=== PATIENT | female | born 1935 | race Caucasian/White ===

== ENCOUNTER 2017-01-16 20:53 | Inpatient (IN) | payer MEDICARE, OTHER ==
[~2017-01-16] VITALS: Ht 149.9 cm; Wt 49.0 kg
[2017-01-16] MEDS ORDERED: SODIUM CHLORIDE 0.9% 1,000ML IVBOLUS ONE (21:30)
[2017-01-16] MEDS ORDERED: ALBUTEROL/IPRATROPIUM 2.5MG/0.5MG, 3 ML NEB ONE (21:30)
[2017-01-16] MEDS ORDERED: SODIUM CHLORIDE FLUSH 10ML SYR IVF ONE (21:30)
[2017-01-16] MEDS ORDERED: ALBUTEROL/IPRATROPIUM 2.5MG/0.5MG, 3 ML ONE (21:52)
[2017-01-16 22:01] LABS: HEMATOCRIT 30.9 % (34.6-47.8); HEMOGLOBIN 9.9 g/dL (11.7-16.4); WHITE BLOOD COUNT 11.2 x10^3/uL (3.4-10)
[2017-01-16 22:09] LABS: ASPARTATE AMINO TRANSFERASE 53 U/L (15-37); BLOOD UREA NITROGEN 11 mg/dL (7-18)
[2017-01-16] MEDS ORDERED: ACETAMINOPHEN 325 MG TABLET ONE (22:14)
[2017-01-16 22:15] LABS: IS PT STATUS REG ER OR PRE ER? YES
[2017-01-16] MEDS ORDERED: LEVO50TA PO (22:19)
[2017-01-16] MEDS ORDERED: POTASSIUM CHLORIDE 20 MEQ TAB.ER.PRT PO ONE ×2 (22:30→23:30)
[2017-01-16] MEDS ORDERED: LEVOFLOXACIN/PMX 750MG/150ML 150 ML IV ONE (22:30)
[2017-01-16] MEDS ORDERED: ACETAMINOPHEN 325 MG TABLET PO ONE (22:30)
[2017-01-16] MEDS ORDERED: LEVOFLOXACIN/PMX 750MG/150ML 150 ML ONE (22:40)
[2017-01-16] MEDS ORDERED: POTASSIUM CHLORIDE 20 MEQ TAB.ER.PRT ONE (22:40)
[2017-01-16] MEDS ORDERED: SODIUM CHLORIDE 0.9% 1,000 ML IV SCH (23:04)
[2017-01-16] MEDS ORDERED: BISACODYL 10 MG SUPP PR PRN (23:30)
[2017-01-16] MEDS ORDERED: ONDANSETRON 2MG/ML, 2ML IVPush PRN (23:30)
[2017-01-16] MEDS ORDERED: POLYETHYLENE GLYCOL 17 GM PACKET PO PRN (23:30)
[2017-01-16 23:36] LABS: FERRITIN 59.4 ng/mL (8-252)
[2017-01-16] MEDS: LEVOFLOXACIN/PMX 750MG/150ML 150 ML IV SCH (23:37)
[2017-01-17 00:04] VITALS: BP 122/66
[2017-01-17] MEDS: HEPARIN 5,000 UNITS/ML, 1ML SQ SCH ×4 (00:48→23:24)
[2017-01-17 02:11] VITALS: BP 111/63
[2017-01-17] MEDS ORDERED: ALBUTEROL SULFATE 2.5 MG/3 ML NPPB PRN (02:30)
[2017-01-17 05:45] LABS: ASPARTATE AMINO TRANSFERASE 30 U/L (15-37); BLOOD UREA NITROGEN 7 mg/dL (7-18)
[2017-01-17] MEDS: LEVOTHYROXINE 50 MCG TABLET PO SCH (05:51)
[2017-01-17 06:04] LABS: HEMOGLOBIN 7.7 g/dL (11.7-16.4); WHITE BLOOD COUNT 9.1 x10^3/uL (3.4-10)
[2017-01-17 06:45] VITALS: BP 148/78
[2017-01-17] MEDS ORDERED: MAGNESIUM SULFATE PMX 2GM/50ML 50 ML IV ONE (08:30)
[2017-01-17] MEDS: POTASSIUM CHLORIDE 20 MEQ TAB.ER.PRT PO SCH ×2 (08:46→17:06)
[2017-01-17] MEDS ORDERED: SENNA/DOCUSATE TABLET PO SCH (09:00)
[2017-01-17] MEDS ORDERED: SENNA/DOCUSATE TABLET PO PRN (12:30)
[2017-01-17 13:05] VITALS: BP 155/79
[2017-01-17] MEDS: GUAIFENESIN ER 600 MG TABLET PO SCH ×2 (14:55→21:27)
[2017-01-17 16:59] VITALS: BP 135/72
[2017-01-17 18:39] LABS: HEMATOCRIT 25.9 % (34.6-47.8); HEMOGLOBIN 8.3 g/dL (11.7-16.4)
[2017-01-17] MEDS: FERROUS SULFATE 325 MG TABLET PO SCH (21:27)
[2017-01-17 22:30] VITALS: BP 148/75
[2017-01-17] MEDS: POTASSIUM CHLORIDE 20 MEQ in SODIUM CHLORIDE 0.9% 1,000 ML IV SCH (23:23)
[2017-01-17] MEDS: LEVOFLOXACIN/PMX 750MG/150ML 150 ML IV SCH (23:24)
[2017-01-18 01:47] VITALS: BP 126/69
[2017-01-18 05:28] LABS: HEMATOCRIT 25.3 % (34.6-47.8); HEMOGLOBIN 8.2 g/dL (11.7-16.4); WHITE BLOOD COUNT 8.9 x10^3/uL (3.4-10)
[2017-01-18 05:43] LABS: BLOOD UREA NITROGEN 5 mg/dL (7-18)
[2017-01-18 05:47] LABS: ASPARTATE AMINO TRANSFERASE 30 U/L (15-37)
[2017-01-18] MEDS: LEVOTHYROXINE 50 MCG TABLET PO SCH (05:53)
[2017-01-18 07:43] VITALS: BP 135/72
[2017-01-18] MEDS: GUAIFENESIN ER 600 MG TABLET PO SCH ×2 (08:22→21:12)
[2017-01-18] MEDS: HEPARIN 5,000 UNITS/ML, 1ML SQ SCH ×3 (08:23→23:21)
[2017-01-18] MEDS: POTASSIUM CHLORIDE 20 MEQ TAB.ER.PRT PO SCH (08:23)
[2017-01-18] MEDS: FERROUS SULFATE 325 MG TABLET PO SCH ×2 (08:23→16:35)
[2017-01-18] MEDS: ACETAMINOPHEN 325 MG TABLET PO PRN ×2 (08:36→18:17)
[2017-01-18] MEDS: POTASSIUM CHLORIDE 20 MEQ in SODIUM CHLORIDE 0.9% 1,000 ML IV SCH (12:30)
[2017-01-18 13:21] VITALS: BP 120/65
[2017-01-18 19:48] VITALS: BP 120/70
[2017-01-18] MEDS: LEVOFLOXACIN/PMX 750MG/150ML 150 ML IV SCH (23:21)
[2017-01-19 01:32] VITALS: BP 118/73
[2017-01-19] MEDS: HEPARIN 5,000 UNITS/ML, 1ML SQ SCH ×2 (05:39→16:49)
[2017-01-19] MEDS: POTASSIUM CHLORIDE 20 MEQ in SODIUM CHLORIDE 0.9% 1,000 ML IV SCH (05:39)
[2017-01-19] MEDS: LEVOTHYROXINE 50 MCG TABLET PO SCH (05:39)
[2017-01-19 06:27] LABS: BLOOD UREA NITROGEN 4 mg/dL (7-18)
[2017-01-19 08:31] VITALS: BP 126/68
[2017-01-19] MEDS: GUAIFENESIN ER 600 MG TABLET PO SCH ×2 (08:43→20:56)
[2017-01-19] MEDS: FERROUS SULFATE 325 MG TABLET PO SCH ×2 (08:43→16:49)
[2017-01-19 13:10] VITALS: BP 132/69
[2017-01-19 19:17] VITALS: BP 170/81
[2017-01-20] MEDS: ACETAMINOPHEN 325 MG TABLET PO PRN (00:19)
[2017-01-20] MEDS: HEPARIN 5,000 UNITS/ML, 1ML SQ SCH ×4 (00:19→23:53)
[2017-01-20] MEDS: LEVOFLOXACIN/PMX 750MG/150ML 150 ML IV SCH (00:19)
[2017-01-20 00:34] VITALS: BP 146/74
[2017-01-20] MEDS: POTASSIUM CHLORIDE 20 MEQ in SODIUM CHLORIDE 0.9% 1,000 ML IV SCH (03:30)
[2017-01-20] MEDS: LEVOTHYROXINE 50 MCG TABLET PO SCH (05:47)
[2017-01-20 06:49] VITALS: BP 132/70
[2017-01-20] MEDS: GUAIFENESIN ER 600 MG TABLET PO SCH ×2 (07:39→20:45)
[2017-01-20] MEDS: FERROUS SULFATE 325 MG TABLET PO SCH ×2 (07:44→16:39)
[2017-01-20 12:52] VITALS: BP 169/73
[2017-01-20 19:22] VITALS: BP 163/87
[2017-01-20] MEDS ORDERED: IBUPROFEN 200 MG TABLET PO PRN (21:00)
[2017-01-20] MEDS ORDERED: LEVOFLOXACIN 750 MG TABLET PO SCH (23:30)
[2017-01-21 00:42] VITALS: BP 143/72
[2017-01-21] MEDS: LEVOTHYROXINE 50 MCG TABLET PO SCH (05:12)
[2017-01-21 08:00] VITALS: BP 151/90
[2017-01-21] MEDS ORDERED: LEVO750T26 PO (08:07)
[2017-01-21] MEDS ORDERED: GUAI600T31 PO (08:07)
[2017-01-21] MEDS ORDERED: FERR-36 PO (08:07)
[2017-01-21] MEDS: ACETAMINOPHEN 325 MG TABLET PO PRN (08:18)
[2017-01-21] MEDS: FERROUS SULFATE 325 MG TABLET PO SCH (09:03)
[2017-01-21] MEDS: GUAIFENESIN ER 600 MG TABLET PO SCH (09:03)
[2017-01-21] MEDS: HEPARIN 5,000 UNITS/ML, 1ML SQ SCH (09:06)
== END 2017-01-21 11:05 | disposition home or self-care (01) | DRG 871 ==
LOC: ED 22:08 → EDIP 22:37 → 3NE 01-17 → 4WST 01-17 18:23 → DCLOUNGE 01-21 10:50
PROVIDERS: ADMIT Internal Medicine; ATTEND Internal Medicine
DX: A41.9 Sepsis, unspecified organism (principal); J18.9 Pneumonia, unspecified organism; E44.0 Moderate protein-calorie malnutrition; E87.1 Hypo-osmolality and hyponatremia; Z88.0 Allergy status to penicillin; D50.9 Iron deficiency anemia, unspecified; E03.9 Hypothyroidism, unspecified; Z68.21 Body mass index [BMI] 21.0-21.9, adult; E87.6 Hypokalemia; Z66 Do not resuscitate
CPT/HCPCS: 36415; 71020; 80048; 80053; 82728; 83540; 83550; 83605; 83735; 84132; 84145; 84484; 85014; 85018; 85025; 85610; 85730; 87040; 93005; 94640; 96361; 96365; J1644; J1956; J3480; J7613; J7620; J3475; J7030

== ENCOUNTER → 2017-04-07 | Outpatient (CLI) | payer MEDICARE, OTHER ==
[~2017-04-07] MED LIST: FERR-36 PO; GUAI600T31 PO; LEVO50TA PO; LEVO750T26 PO; REGADENOSON 0.4 MG/5 ML SYRINGE ONE
== END | disposition home or self-care (01) ==
LOC: RAD 12:17
PROVIDERS: ATTEND Internal Medicine Cardiovascular Disease
DX: I07.1 Rheumatic tricuspid insufficiency (principal)
CPT/HCPCS: 78452; 93017; 93306; A9502; J2785

== ENCOUNTER → 2018-03-14 | Outpatient (CLI) | payer MEDICARE, OTHER ==
[~2018-03-14] MED LIST changes: -FERR-36 PO; +FERR-51 PO; -REGADENOSON 0.4 MG/5 ML SYRINGE ONE
== END | disposition home or self-care (01) ==
LOC: CFH 14:17
PROVIDERS: ATTEND Nurse Practitioner
DX: Z13.820 Encounter for screening for osteoporosis (principal); M85.88 Other specified disorders of bone density and structure, other site; M81.0 Age-related osteoporosis without current pathological fracture; N95.1 Menopausal and female climacteric states
CPT/HCPCS: 77080

== ENCOUNTER 2018-09-10 08:38 | Inpatient (IN) | payer MEDICARE, OTHER ==
[~2018-09-10] VITALS: Ht 149.9 cm; Wt 55.5 kg
[2018-09-10] MEDS ORDERED: ACETAMINOPHEN 325 MG TABLET PO ONE (09:00)
[2018-09-10] MEDS ORDERED: ACETAMINOPHEN 325 MG TABLET ONE (09:41)
[2018-09-10 09:55] LABS: BASOPHILS # (AUTO) 0.04 x10^3/uL (0-0.1); BASOPHILS % (AUTO) 0 % (0-1); EOSINOPHILS % (AUTO) 1 % (1-7); LYMPHOCYTES # (AUTO) 0.99 x10^3/uL (1-3.4); LYMPHOCYTES % (AUTO) 10 % (22-44); MD NO; MEAN CORPUSCULAR HEMOGLOBIN 29.6 pg (27.0-34.8); MEAN CORPUSCULAR HGB CONC 32.9 g/dL (32.4-35.8); MEAN CORPUSCULAR VOLUME 90.1 fL (80-100); MEAN PLATELET VOLUME 8.8 fL (7.4-10.4); MONOCYTES # (AUTO) 0.32 x10^3/uL (0.2-0.8); MONOCYTES % (AUTO) 3 % (2-9); NEUTROPHILS # (AUTO) 8.78 x10^3/uL (1.8-6.8); NEUTROPHILS % (AUTO) 86 % (42-75); PLATELET COUNT 288 x10^3/uL (130-400); RED BLOOD COUNT 4.64 x10^6/uL (3.82-5.3); RED CELL DISTRIBUTION WIDTH 13.5 % (9.6-15.2)
[2018-09-10] MEDS ORDERED: MORPHINE SULFATE 4 MG/ML, 1ML IVPush PRN (10:00)
[2018-09-10] MEDS ORDERED: ONDANSETRON 2MG/ML, 2ML IVPush ONE (10:00)
[2018-09-10 10:06] LABS: INTERNATIONAL NORMALIZED RATIO 0.95 (0.93-1.1)
[2018-09-10 10:07] LABS: ALBUMIN 3.9 g/dL (3.4-5.0); ANION GAP 5 mmol/L (5-15); CALCIUM 9.3 mg/dL (8.5-10.1); CHLORIDE 108 mmol/L (98-107); CREATININE 0.62 mg/dL (0.55-1.02)
[2018-09-10 10:10] LABS: TROPONIN I < 0.015 ng/mL (0.000-0.045)
[2018-09-10] MEDS ORDERED: MORPHINE SULFATE 4 MG/ML, 1ML ONE (10:12)
[2018-09-10] MEDS ORDERED: ONDANSETRON 2MG/ML, 2ML ONE (10:21)
--- NOTE | 2018-09-10 10:45 | NUR ---
TASK RN NOTE: STANLEY CATH INSERTED, STERILE TECHNIQUE MAINTAINED, INSERTION OBSERVED BY ALLIE GOODRICH. PT MEDICATED PER EMAR, TOLERATED WELL. PT UNABLE TO RATE PAIN ON LARRY DELGADO SCALE, HOWEVER STATES PAIN WENT FROM SEVERE LEVEL TO TOLERABLE LEVEL S/P MORPHINE. PT A&O, RESPS EVEN AND UNLABORED. NADN. SPO2 91% ON ROOM AIR BEFORE MORPHINE ADMIN, OXYGEN APPLIED AT 2L/MIN VIA NC. HOSPITALIST ITCO AT BEDSIDE TO ADMIT.
[2018-09-10] MEDS ORDERED: ACETAMINOPHEN 325 MG TABLET PO PRN ×2 (11:00→15:30)
[2018-09-10] MEDS ORDERED: morphine SULFATE 10 MG/ML, 1ML IVPush PRN (11:00)
[2018-09-10] MEDS ORDERED: hydrALAzine 20 MG/ML, 1ML IVPush PRN (11:00)
[2018-09-10] MEDS ORDERED: CYCLOBENZAPRINE 10 MG TABLET PO PRN (11:00)
[2018-09-10] MEDS ORDERED: NITROGLYCERIN 0.4 MG BOTTLE (25 TABS) SL PRN (11:00)
[2018-09-10] MEDS ORDERED: ONDANSETRON 2MG/ML, 2ML IVPush PRN (11:00)
--- NOTE | 2018-09-10 11:33 | NUR ---
PT IN XRAY. CLOTHING PLACED IN BELONGING BAG, PURSE TO .
--- NOTE | 2018-09-10 11:48 | NUR ---
sbar to anthony blackwood via telephone
[2018-09-10] MEDS ORDERED: FENTANYL PF 250 MCG/5ML ONE (11:49)
[2018-09-10] MEDS ORDERED: BUPIVACAINE/PF-EPI 0.5% 1:200K ONE (12:23)
[2018-09-10] MEDS ORDERED: PROPOFOL 50 ML ONE (12:23)
[2018-09-10] MEDS ORDERED: SUCCINYLCHOLINE 20 MG/ML, 10ML ONE (12:36)
[2018-09-10] MEDS ORDERED: CEFAZOLIN 1,000 MG ONE (12:36)
[2018-09-10] MEDS ORDERED: DEXAMETHASONE 4 MG/ML, 1ML ONE (12:36)
[2018-09-10] MEDS ORDERED: ROCURONIUM 10MG/ML,5ML ONE (12:36)
[2018-09-10] MEDS ORDERED: ONDANSETRON 2MG/ML, 2ML IV PRN (15:30)
[2018-09-10] MEDS ORDERED: MEPERIDINE/PF 25MG/0.5ML IVPush PRN (15:30)
[2018-09-10] MEDS ORDERED: OXYcodone 5 MG/5 ML ORAL.SOL UDC PO PRN (15:30)
[2018-09-10] MEDS ORDERED: ACETAMINOPHEN 650 MG/20.3 ML UDC ONE (15:35)
[2018-09-10] MEDS: FENTANYL PF 100 MCG/2ML IV PRN ×2 (15:35→15:45)
[2018-09-10] MEDS ORDERED: FENTANYL PF 100 MCG/2ML ONE (15:36)
[2018-09-10] MEDS ORDERED: OXYcodone 5 MG/5 ML ORAL.SOL UDC ONE (15:36)
[2018-09-10] MEDS ORDERED: MEPERIDINE/PF 25MG/ML,1ML ONE (15:45)
[2018-09-10] MEDS ORDERED: ASPIRIN 325 MG TABLET EC PO ONE (16:00)
[2018-09-10 17:00] VITALS: BP 137/78
[2018-09-10] MEDS: FERROUS SULFATE 325 MG TABLET PO SCH (17:00)
[2018-09-10 20:14] VITALS: BP 150/81
[2018-09-10] MEDS: CEFAZOLIN PMX 1GM/50ML 50 ML IV SCH (21:16)
[2018-09-10] MEDS: HYDROcodone/APAP 5/325 TABLET PO PRN (21:30)
[2018-09-10] MEDS: DOCUSATE 100 MG CAPSULE PO PRN (21:30)
[2018-09-10] MEDS: GUAIFENESIN ER 600 MG TABLET PO SCH (21:31)
[2018-09-10] MEDS: D5%-0.45% NACL 1,000 ML IV SCH (21:32)
[2018-09-10 21:41] VITALS: BP 149/82
[2018-09-11 01:55] VITALS: BP 127/68
[2018-09-11] MEDS: HYDROcodone/APAP 5/325 TABLET PO PRN ×4 (03:36→20:40)
[2018-09-11 05:39] LABS: CHLORIDE 104 mmol/L (98-107)
[2018-09-11] MEDS: CEFAZOLIN PMX 1GM/50ML 50 ML IV SCH ×2 (05:42→12:46)
[2018-09-11 05:43] LABS: ANION GAP 4 mmol/L (5-15); CALCIUM 8.3 mg/dL (8.5-10.1); CREATININE 0.57 mg/dL (0.55-1.02)
[2018-09-11 05:57] LABS: BASOPHILS # (AUTO) 0.03 x10^3/uL (0-0.1); BASOPHILS % (AUTO) 0 % (0-1); EOSINOPHILS # (AUTO) 0.01 x10^3/uL (0-0.4); EOSINOPHILS % (AUTO) 0 % (1-7); LYMPHOCYTES # (AUTO) 1.03 x10^3/uL (1-3.4); LYMPHOCYTES % (AUTO) 12 % (22-44); MD NO; MEAN CORPUSCULAR HEMOGLOBIN 30.1 pg (27.0-34.8); MEAN CORPUSCULAR HGB CONC 33.5 g/dL (32.4-35.8); MEAN CORPUSCULAR VOLUME 89.8 fL (80-100); MEAN PLATELET VOLUME 8.7 fL (7.4-10.4); MONOCYTES # (AUTO) 0.63 x10^3/uL (0.2-0.8); MONOCYTES % (AUTO) 7 % (2-9); NEUTROPHILS # (AUTO) 7.28 x10^3/uL (1.8-6.8); NEUTROPHILS % (AUTO) 81 % (42-75); PLATELET COUNT 203 x10^3/uL (130-400); RED BLOOD COUNT 3.44 x10^6/uL (3.82-5.3); RED CELL DISTRIBUTION WIDTH 13.8 % (9.6-15.2)
[2018-09-11] MEDS: LEVOTHYROXINE 50 MCG TABLET PO SCH (06:00)
[2018-09-11] MEDS ORDERED: LEVOTHYROXINE 25 MCG TABLET ONE (06:05)
[2018-09-11 08:00] VITALS: BP 111/61
[2018-09-11] MEDS: GUAIFENESIN ER 600 MG TABLET PO SCH ×2 (08:33→20:40)
[2018-09-11] MEDS: FERROUS SULFATE 325 MG TABLET PO SCH ×2 (08:33→16:35)
[2018-09-11] MEDS: D5%-0.45% NACL 1,000 ML IV SCH ×2 (08:39→22:30)
[2018-09-11] MEDS: ASPIRIN 325 MG TABLET EC PO SCH (10:23)
[2018-09-11 14:08] VITALS: BP 134/70
[2018-09-11 19:00] VITALS: BP 129/67
[2018-09-12 02:08] VITALS: BP 112/66
[2018-09-12] MEDS: HYDROcodone/APAP 5/325 TABLET PO PRN ×3 (03:29→19:43)
[2018-09-12] MEDS: ASPIRIN 325 MG TABLET EC PO SCH (05:41)
[2018-09-12] MEDS: LEVOTHYROXINE 50 MCG TABLET PO SCH (05:41)
[2018-09-12 07:12] VITALS: BP 104/59
[2018-09-12] MEDS: GUAIFENESIN ER 600 MG TABLET PO SCH ×2 (08:46→21:00)
[2018-09-12] MEDS: FERROUS SULFATE 325 MG TABLET PO SCH ×2 (08:46→17:09)
[2018-09-12] MEDS: ENOXAPARIN 40 MG/0.4 ML SQ SCH (10:06)
[2018-09-12] MEDS: D5%-0.45% NACL 1,000 ML IV SCH (11:57)
[2018-09-12 12:26] VITALS: BP 118/68
[2018-09-12 19:37] VITALS: BP 145/71
[2018-09-13] MEDS: D5%-0.45% NACL 1,000 ML IV SCH ×2 (00:13→17:59)
[2018-09-13 01:21] VITALS: BP 124/72
[2018-09-13] MEDS: HYDROcodone/APAP 5/325 TABLET PO PRN ×4 (05:16→23:29)
[2018-09-13] MEDS: LEVOTHYROXINE 50 MCG TABLET PO SCH (05:19)
[2018-09-13] MEDS: ASPIRIN 325 MG TABLET EC PO SCH (05:19)
[2018-09-13 07:09] VITALS: BP 105/61
[2018-09-13] MEDS: GUAIFENESIN ER 600 MG TABLET PO SCH ×2 (09:02→21:00)
[2018-09-13] MEDS: FERROUS SULFATE 325 MG TABLET PO SCH ×2 (09:02→17:59)
[2018-09-13] MEDS: ENOXAPARIN 40 MG/0.4 ML SQ SCH (09:03)
[2018-09-13 13:26] VITALS: BP 132/69
[2018-09-13 18:56] VITALS: BP 158/86
[2018-09-13] MEDS: DOCUSATE 100 MG CAPSULE PO PRN (23:28)
[2018-09-14 02:38] VITALS: BP 106/66
[2018-09-14] MEDS: ASPIRIN 325 MG TABLET EC PO SCH (05:23)
[2018-09-14] MEDS: LEVOTHYROXINE 50 MCG TABLET PO SCH (05:23)
[2018-09-14] MEDS: HYDROcodone/APAP 5/325 TABLET PO PRN (05:23)
[2018-09-14 07:09] VITALS: BP 124/71
[2018-09-14] MEDS: D5%-0.45% NACL 1,000 ML IV SCH (08:26)
[2018-09-14] MEDS: FERROUS SULFATE 325 MG TABLET PO SCH (08:37)
[2018-09-14] MEDS: GUAIFENESIN ER 600 MG TABLET PO SCH (08:37)
[2018-09-14] MEDS ORDERED: SENNA/DOCUSATE TABLET PO SCH (10:00)
[2018-09-14] MEDS ORDERED: MAGNESIUM CITRATE 300ML ORAL SOL PO PRN (10:00)
[2018-09-14] MEDS ORDERED: BISACODYL 10 MG SUPP PR PRN (10:00)
[2018-09-14] MEDS: ENOXAPARIN 40 MG/0.4 ML SQ SCH (10:55)
[2018-09-14] MEDS ORDERED: BISA10SU54 PR (11:30)
[2018-09-14] MEDS ORDERED: ENOX40SY4 SQ (11:30)
[2018-09-14] MEDS ORDERED: SENN-177 PO (11:30)
[2018-09-14] MEDS ORDERED: HYDR-3237 PO (11:30)
[2018-09-14] MEDS ORDERED: CYCL-259 PO (11:30)
[2018-09-14 12:05] VITALS: BP 154/81
== END 2018-09-14 13:24 | DRG 470 ==
LOC: ED 10:59 → EDIP 11:00 → 4NOR 16:43
PROVIDERS: ADMIT Internal Medicine; ATTEND Internal Medicine
PROC: 0SRS0J9 Replacement of Left Hip Joint, Femoral Surface with Synthetic Substitute, Cemented, Open Approach (ICD-10-PCS; principal; 2018-09-10 12:00)
DX: S72.012A Unspecified intracapsular fracture of left femur, initial encounter for closed fracture (principal); R71.0 Precipitous drop in hematocrit; W01.198A Fall on same level from slipping, tripping and stumbling with subsequent striking against other object, initial encounter; Y93.01 Activity, walking, marching and hiking; E03.9 Hypothyroidism, unspecified; M11.262 Other chondrocalcinosis, left knee; K59.00 Constipation, unspecified; Y92.89 Other specified places as the place of occurrence of the external cause; Z88.0 Allergy status to penicillin; Y99.8 Other external cause status; Z82.3 Family history of stroke; Z82.0 Family history of epilepsy and other diseases of the nervous system; Z82.49 Family history of ischemic heart disease and other diseases of the circulatory system; Z79.899 Other long term (current) drug therapy
CPT/HCPCS: 36415; 71045; 72170; 80048; 82040; 84484; 85025; 85610; 85730; 93005; 96374; 96375; C1713; G0378; J0690; J1100; J1650; J2175; J2405; J2704; J3010; C1762; C1776; J0330; J2270

== ENCOUNTER 2019-07-11 21:59 | Inpatient (IN) | payer MEDICARE, OTHER ==
[~2019-07-11] VITALS: Ht 152.4 cm; Wt 49.8 kg
[~2019-07-11 21:59] MED LIST changes: +BISA10SU54 PR; +CYCL-259 PO; +ENOX40SY4 SQ; +HYDR-3237 PO; +SENN-177 PO
--- NOTE | 2019-07-11 22:13 | NUR ---
BIBA FOR C/O ABD PAIN N/V AND CONSTIPATION X2 DAYS, VSS. PLACED VITALS SIGNS MONITORS ON, CALL LIGHT WITHIN REACH, SIDE RAILS LOCKED.
--- NOTE | 2019-07-11 22:18 | NUR ---
PT AMBULATED TO RESTROOM FOR URINE SAMPLE.
[2019-07-11] MEDS ORDERED: ONDANSETRON 2MG/ML, 2ML IVPush ONE (22:30)
[2019-07-11] MEDS ORDERED: MORPHINE SULFATE 4 MG/ML, 1ML IVPush PRN (22:30)
[2019-07-11 22:35] LABS: BASOPHILS # (AUTO) 0.03 x10^3/uL (0-0.1); BASOPHILS % (AUTO) 0 % (0-1); EOSINOPHILS # (AUTO) 0.08 x10^3/uL (0-0.4); EOSINOPHILS % (AUTO) 1 % (1-7); LYMPHOCYTES # (AUTO) 1.42 x10^3/uL (1-3.4); LYMPHOCYTES % (AUTO) 11 % (22-44); MD NO; MEAN CORPUSCULAR HEMOGLOBIN 29.8 pg (27.0-34.8); MEAN CORPUSCULAR HGB CONC 32.8 g/dL (32.4-35.8); MEAN CORPUSCULAR VOLUME 90.8 fL (80-100); MEAN PLATELET VOLUME 9.8 fL (7.4-10.4); MONOCYTES # (AUTO) 0.66 x10^3/uL (0.2-0.8); MONOCYTES % (AUTO) 5 % (2-9); NEUTROPHILS # (AUTO) 11.18 x10^3/uL (1.8-6.8); NEUTROPHILS % (AUTO) 84 % (42-75); PLATELET COUNT 301 x10^3/uL (130-400); RED BLOOD COUNT 4.74 x10^6/uL (3.82-5.3)
[2019-07-11 22:45] LABS: ALANINE AMINOTRANSFERASE 25 U/L (12-78); ALBUMIN 3.8 g/dL (3.4-5.0); ANION GAP 6 mmol/L (5-15); CHLORIDE 104 mmol/L (98-107); CREATININE 0.72 mg/dL (0.55-1.02)
[2019-07-11 22:47] LABS: CULTURE INDICATED? YES; MICROSCOPIC INDICATED
[2019-07-11 22:49] LABS: ALKALINE PHOSPHATASE 61 U/L (45-117); BILIRUBIN,TOTAL 0.4 mg/dL (0.2-1.0); TROPONIN I < 0.015 ng/mL (0.000-0.045)
[2019-07-11] MEDS ORDERED: OMNIPAQUE 350 MG/ML, 100ML BOTTLE ONE (23:15)
--- NOTE | 2019-07-11 23:19 | NUR ---
PT BACK FROM CT. RESTING IN [facility]. VSS. DAUGHTER AT BEDSIDE.
[2019-07-11] MEDS ORDERED: ONDANSETRON 2MG/ML, 2ML ONE (23:29)
[2019-07-11] MEDS ORDERED: MORPHINE SULFATE 4 MG/ML, 1ML ONE (23:29)
--- NOTE | 2019-07-11 23:37 | NUR ---
MEDICATED PER MAR.
[2019-07-12] MEDS ORDERED: HYDROmorphone 1 MG/ML, 1ML INJ ONE (00:29)
[2019-07-12] MEDS ORDERED: HYDROmorphone 2 MG/ML, 1ML IVPush PRN (00:30)
--- NOTE | 2019-07-12 00:37 | NUR ---
KELECHI RN: ASSISTED IN PT CARE. PT MEDICATED PER MAR FOR CONTINUED ABD PAIN. ERP TO ATTEMPT TO REDUCE HERNIA ONCE PT IS MORE COMFORTABLE. PT AWARE OF POC. FAMILY AT BEDSIDE. VSS. CALL LIGHT IN REACH.
--- NOTE | 2019-07-12 00:50 | NUR ---
KELECHI RN: ERP AT BEDSIDE FOR REDUCTION
[2019-07-12] MEDS ORDERED: MORPHINE SULFATE 4 MG/ML, 1ML IVPush PRN (02:00)
[2019-07-12] MEDS ORDERED: ONDANSETRON 2MG/ML, 2ML IVPush PRN ×2 (02:00→03:00)
[2019-07-12] MEDS ORDERED: morphine SULFATE 10 MG/ML, 1ML IVPush PRN (03:00)
[2019-07-12] MEDS ORDERED: BISACODYL 10 MG SUPP PR PRN (03:00)
[2019-07-12] MEDS ORDERED: POLYETHYLENE GLYCOL 17 GM PACKET PO PRN (03:00)
[2019-07-12] MEDS ORDERED: ENOXAPARIN 40 MG/0.4 ML SQ SCH (03:00)
[2019-07-12] MEDS ORDERED: hydrALAzine 20 MG/ML, 1ML IVPush PRN (03:00)
--- NOTE | 2019-07-12 03:21 | NUR ---
ASSISTED PT WITH ORAL CARE, PT AWAKE IN NO ACUTE DISTRESS, VSS. SAFETY PRECAUTIONS IN PLACE.
[2019-07-12] MEDS ORDERED: ENOXAPARIN 40 MG/0.4 ML ONE (03:30)
[2019-07-12 03:35] LABS: FREE T4 (FREE THYROXINE) 1.04 ng/dL (0.76-1.46)
[2019-07-12] MEDS: NS + 20MEQ KCL 1,000 ML IV SCH ×2 (04:08→14:06)
--- NOTE | 2019-07-12 04:20 | NUR ---
ATTEMPTED TO CALL REPORT TO MED/[facility]BBON WINDER, PER ABRIL SHE WILL RETURN CALL.
--- NOTE | 2019-07-12 04:36 | NUR ---
REPORT GIVEN TO ABRIL GOODRICH.
[2019-07-12 05:03] VITALS: BP 167/83
[2019-07-12 07:12] VITALS: BP 147/71
[2019-07-12] MEDS ORDERED: PANTOPRAZOLE 40 MG IV IVPush SCH (07:30)
[2019-07-12 15:43] VITALS: BP 152/82
[2019-07-12 20:00] VITALS: BP 154/79
[2019-07-13] MEDS ORDERED: ENOXAPARIN 30 MG/0.3 ML SQ SCH (04:00)
[2019-07-13] MEDS ORDERED: LEVOTHYROXINE 50 MCG TABLET PO SCH (06:00)
== END 2019-07-12 21:19 | disposition home or self-care (01) | DRG 395 ==
LOC: ED 07-12 00:20 → EDIP 07-12 01:55 → 3N 07-12 04:53
PROVIDERS: ADMIT Hospitalist; ATTEND Family Medicine
DX: K40.30 Unilateral inguinal hernia, with obstruction, without gangrene, not specified as recurrent (principal); E03.9 Hypothyroidism, unspecified; Z88.0 Allergy status to penicillin; K31.89 Other diseases of stomach and duodenum; M47.816 Spondylosis without myelopathy or radiculopathy, lumbar region; Z87.01 Personal history of pneumonia (recurrent); Z87.891 Personal history of nicotine dependence; Z96.642 Presence of left artificial hip joint
CPT/HCPCS: 36415; 74177; 80053; 81001; 83690; 84439; 84443; 84484; 85025; 85651; 87086; 93005; 96374; 96375; G0378; J1170; J1650; J2405; J3480; Q9967; C9113; J2270

== ENCOUNTER → 2020-05-28 | Outpatient (CLI) | payer MEDICARE, OTHER ==
[~2020-05-28] MED LIST changes: +HYDR-1067 PO
[2020-05-28 12:10] LABS: BASOPHILS % (AUTO) 2 % (0-1); EOSINOPHILS % (AUTO) 3 % (1-7); LYMPHOCYTES % (AUTO) 36 % (22-44); MEAN CORPUSCULAR HEMOGLOBIN 29.3 pg (27.0-34.8); MEAN PLATELET VOLUME 9.9 fL (7.4-10.4); MONOCYTES % (AUTO) 7 % (2-9); NEUTROPHILS % (AUTO) 52 % (42-75); PLATELET COUNT 231 x10^3/uL (130-400); RED BLOOD COUNT 4.21 x10^6/uL (3.82-5.3); RED CELL DISTRIBUTION WIDTH 14.6 % (9.6-15.2)
[2020-05-28 12:13] LABS: MD NO
[2020-05-28 12:25] LABS: CHLORIDE 108 mmol/L (98-107)
[2020-05-28 12:36] LABS: ALANINE AMINOTRANSFERASE 39 U/L (12-78); ALBUMIN 3.6 g/dL (3.4-5.0); ALKALINE PHOSPHATASE 71 U/L (45-117); ANION GAP 5 mmol/L (5-15); BILIRUBIN,TOTAL 0.4 mg/dL (0.2-1.0); CHOL/HDL RATIO 2.1; CHOLESTEROL, TOTAL 215 mg/dL (140-239); CREATININE 0.53 mg/dL (0.55-1.02); HDL CHOLESTEROL (DIRECT) 103 mg/dL (40-60); TOTAL PROTEIN 7.9 g/dL (6.4-8.2); TRIGLYCERIDES 48 mg/dL (50-200); VLDL CHOLESTEROL 10 mg/dL (0-25)
[2020-05-28 12:37] LABS: FREE T4 (FREE THYROXINE) 1.56 ng/dL (0.76-1.46); HDL CHOL % 48 % (28-40); LDL CHOLESTEROL,CALCULATED 102 mg/dL (54-169)
== END | disposition home or self-care (01) ==
LOC: LAB 11:43
PROVIDERS: ATTEND Nurse Practitioner
DX: I10 Essential (primary) hypertension (principal); D50.9 Iron deficiency anemia, unspecified; E03.9 Hypothyroidism, unspecified
CPT/HCPCS: 36415; 80053; 80061; 84439; 84443; 85025